=== PATIENT | female | born 1970 | race African-American/Black ===

== ENCOUNTER 2017-10-20 10:08 | Emergency (ER) | payer OTHER ==
[~2017-10-20] VITALS: Ht 160 cm; Wt 114.0 kg
[2017-10-20] MEDS ORDERED: KETOROLAC 30MG/ML VIAL IM ONE (18:45)
[2017-10-20 18:55] VITALS: BP 149/85
== END 2017-10-20 20:20 | disposition home or self-care (01) ==
LOC: ER 10:39
DX: K08.89 Other specified disorders of teeth and supporting structures (principal); I10 Essential (primary) hypertension; R51 Headache; F17.200 Nicotine dependence, unspecified, uncomplicated
CPT/HCPCS: 81025; 96372; 99283; J1885; Z7610

== ENCOUNTER 2018-02-18 12:19 | Inpatient (IN) | payer OTHER ==
[~2018-02-18] VITALS: Ht 160 cm; Wt 112.5 kg
[2018-02-18] MEDS ORDERED: ASPIRIN 81MG TABLET PO STA (13:05)
[2018-02-18] MEDS ORDERED: NITROGLYCERIN 0.4MG TABLET SL SL PRN (13:15)
[2018-02-18 14:46] LABS: BASOPHILS % 0.6 % (0.0-2.0); EOSINOPHILS % 2.5 % (0.0-5.0); HEMOGLOBIN. 13.7 g/dL (12.0-16.0); MEAN CORPUSCULAR HEMOGLOBIN 28.4 pg (28.0-32.0); MEAN PLATELET VOLUME 9.3 fl (7.4-10.4); MONOCYTES % 8.1 % (2.0-8.0); NEUTROPHILS % 64.8 % (40.0-76.0); PLATELET 274 x1000/uL (130-400); RED BLOOD CELL COUNT 4.82 mill/uL (4.2-5.4); RED CELL DISTRIBUTION WIDTH 12.9 % (11.6-14.6)
[2018-02-18 14:48] LABS: CHLORIDE 106 mEq/L (98-107)
[2018-02-18 14:51] LABS: PARTIAL THROMBOPLASTIN TIME 27.5 sec (23.4-31.0); PROTHROMBIN TIME 10.6 sec (9.4-11.6)
[2018-02-18 17:23] LABS: HCG SCREEN NEGATIVE
[2018-02-18] MEDS ORDERED: IPRATROPIUM/ALBUTEROL 0.5-3(2.5)MG/3ML NEB INH PRN (18:15)
[2018-02-18] MEDS ORDERED: ENOXAPARIN 40MG/0.4ML SYR SUBCUT SCH (18:15)
[2018-02-18] MEDS ORDERED: ONDANSETRON HCL 4MG/2ML VIAL IV PRN (18:15)
[2018-02-18] MEDS ORDERED: HYDROCODONE/ACETAMINOPHEN 5/325MG TABLET PO PRN (18:15)
[2018-02-18] MEDS ORDERED: CLONIDINE 0.1MG TABLET PO PRN (18:15)
[2018-02-18] MEDS ORDERED: ACETAMINOPHEN 325MG TABLET PO PRN (18:15)
[2018-02-18] MEDS ORDERED: MAGNESIUM/ALUMINUM HYDROXIDE/SIMETHICONE 30ML UDC PO PRN (18:15)
[2018-02-18] MEDS ORDERED: DOCUSATE SODIUM 100MG CAPSULE PO PRN (18:15)
[2018-02-18 18:44] LABS: CHLORIDE 106 mEq/L (98-107)
[2018-02-18] MEDS ORDERED: HYDR-4133 MT (22:16)
[2018-02-18] MEDS ORDERED: LISI2.5T47 MT (22:16)
[2018-02-18] MEDS ORDERED: ASPI-1159 MT (22:16)
[2018-02-18] MEDS ORDERED: FURO-152 MT (22:16)
[2018-02-18] MEDS ORDERED: ONDANSETRON 4MG ODT PO PRN (22:45)
[2018-02-19] VITALS (8 sets, daily range): BP systolic 123–177; BP diastolic 53–84
[2018-02-19 00:18] LABS: CREATINE KINASE 58 IU/L (26-192); CREATINE KINASE MB FRACTION 0.7 ng/mL (0.5-3.6)
[2018-02-19 06:47] LABS: BASOPHILS % 0.4 % (0.0-2.0); EOSINOPHILS % 2.1 % (0.0-5.0); HEMOGLOBIN. 13.2 g/dL (12.0-16.0); LYMPHOCYTES % 24.6 % (20.0-50.0); MEAN CORPUSCULAR HEMOGLOBIN 28.5 pg (28.0-32.0); MEAN CORPUSCULAR VOLUME 83.8 fL (81.0-99.0); MONOCYTES % 8.1 % (2.0-8.0); NEUTROPHILS % 64.8 % (40.0-76.0); PLATELET 246 x1000/uL (130-400); RED BLOOD CELL COUNT 4.65 mill/uL (4.2-5.4); RED CELL DISTRIBUTION WIDTH 12.9 % (11.6-14.6)
[2018-02-19 06:55] LABS: CREATINE KINASE 56 IU/L (26-192); LDL CHOLESTEROL 43 mg/dL (5-100)
[2018-02-19 06:57] LABS: HDL CHOLESTEROL 42 mg/dL (40-59)
[2018-02-19 06:59] LABS: CREATINE KINASE MB FRACTION 0.7 ng/mL (0.5-3.6)
[2018-02-19] MEDS: ENOXAPARIN 40MG/0.4ML SYR SUBCUT SCH ×2 (08:53→20:37)
[2018-02-19] MEDS ORDERED: ASPIRIN 81MG EC TABLET PO SCH (09:00)
[2018-02-19 11:32] LABS: *AMPHETAMINES SCREEN URINE NEGATIVE (NEGATIVE); *BARBITURATES SCREEN URINE NEGATIVE (NEGATIVE); *BENZODIAZEPINES SCREEN URINE NEGATIVE (NEGATIVE); *COCAINE SCREEN URINE NEGATIVE (NEGATIVE)
[2018-02-19 11:34] LABS: METHADONE URINE SCREEN NEGATIVE (NEGATIVE); PHENCYCLIDINE URINE SCREEN NEGATIVE (NEGATIVE)
[2018-02-19 11:43] LABS: OPIATES URINE SCREEN NEGATIVE (NEGATIVE)
[2018-02-19 11:44] LABS: CANNABINOID URINE SCREEN NEGATIVE (NEGATIVE)
[2018-02-19] MEDS: METOPROLOL TARTRATE 50MG TABLET PO SCH (20:37)
[2018-02-20] VITALS (7 sets, daily range): BP systolic 135–154; BP diastolic 64–81
[2018-02-20 06:01] LABS: BASOPHILS % 0.5 % (0.0-2.0); EOSINOPHILS % 2.8 % (0.0-5.0); HEMATOCRIT. 39.1 % (36.0-48.0); HEMOGLOBIN. 13.1 g/dL (12.0-16.0); LYMPHOCYTES % 30.3 % (20.0-50.0); MEAN CORPUSCULAR VOLUME 83.4 fL (81.0-99.0); MEAN PLATELET VOLUME 9.9 fl (7.4-10.4); MONOCYTES % 8.2 % (2.0-8.0); NEUTROPHILS % 58.2 % (40.0-76.0); PLATELET 247 x1000/uL (130-400); RED BLOOD CELL COUNT 4.68 mill/uL (4.2-5.4); RED CELL DISTRIBUTION WIDTH 12.9 % (11.6-14.6)
[2018-02-20 06:46] LABS: CHLORIDE 105 mEq/L (98-107)
[2018-02-20 06:53] LABS: PHOSPHORUS 3.5 mg/dL (2.5-4.9)
[2018-02-20] MEDS: ENOXAPARIN 40MG/0.4ML SYR SUBCUT SCH (08:37)
[2018-02-20] MEDS: METOPROLOL TARTRATE 50MG TABLET PO SCH (08:38)
[2018-02-20] MEDS ORDERED: FUROSEMIDE 20MG TABLET PO SCH (09:00)
[2018-02-20] MEDS ORDERED: METO-539 PO (13:59)
[2018-02-20] MEDS ORDERED: ENOXAPARIN 30MG/0.3ML SYR SUBCUT SCH (21:00)
== END 2018-02-20 18:10 | disposition home or self-care (01) | DRG 203 ==
LOC: ER 15:00 → 7WST 17:00 → EDBEDREQ 17:06 → EDBEDREQTM 17:06 → ENRESERV 18:57
PROVIDERS: ADMIT Internal Medicine; ATTEND Internal Medicine
DX: R07.89 Other chest pain (principal); I11.0 Hypertensive heart disease with heart failure; K75.9 Inflammatory liver disease, unspecified; I50.9 Heart failure, unspecified; F17.210 Nicotine dependence, cigarettes, uncomplicated; E78.5 Hyperlipidemia, unspecified; R00.2 Palpitations; Z72.89 Other problems related to lifestyle; Z86.73 Personal history of transient ischemic attack (TIA), and cerebral infarction without residual deficits
CPT/HCPCS: 36415; 71045; 80048; 80053; 80061; 80305; 82550; 82553; 83735; 83880; 84100; 84443; 84484; 84703; 85025; 85610; 85730; 93005; 93970; 99285; J1650

== ENCOUNTER 2019-11-16 11:36 | Emergency (ER) | payer OTHER, MEDICAID ==
[~2019-11-16] VITALS: Ht 170.2 cm; Wt 83.0 kg
[~2019-11-16 11:36] MED LIST: ASPI-1497 MT; FURO-152 MT; METO-539 PO
[2019-11-16] MEDS ORDERED: SODIUM CHLORIDE 0.9% 1,000 ML IV ONE (12:02)
[2019-11-16 12:34] LABS: BASOPHILS % 0.6 % (0.0-2.0); EOSINOPHILS % 0.7 % (0.0-5.0); HEMATOCRIT. 42.9 % (36.0-48.0); HEMOGLOBIN. 14.6 g/dL (12.0-16.0); MEAN CORPUSCULAR HEMOGLOBIN 29.3 pg (28.0-32.0); MEAN CORPUSCULAR VOLUME 86.3 fL (81.0-99.0); MEAN PLATELET VOLUME 9.8 fl (7.4-10.4); MONOCYTES % 7.9 % (2.0-8.0); NEUTROPHILS % 77.8 % (40.0-76.0); PLATELET 239 x1000/uL (130-400); RED BLOOD CELL COUNT 4.98 mill/uL (4.2-5.4); RED CELL DISTRIBUTION WIDTH 13.3 % (11.6-14.6)
[2019-11-16 13:04] LABS: CHLORIDE 108 mEq/L (98-107)
[2019-11-16] MEDS ORDERED: POTASSIUM CHLORIDE 20MEQ TABLET SR PO ONE (13:15)
[2019-11-16 14:05] VITALS: BP 133/63
[2019-11-16 14:06] LABS: CLARITY URINE CLOUDY (CLEAR); COLOR URINE DARK YELLOW (YELLOW); KETONES URINE TRACE (NEGATIVE); LEUKOCYTE ESTERASE URINE NEGATIVE (NEGATIVE); NITRITE URINE NEGATIVE (NEGATIVE); OCCULT BLOOD URINE NEGATIVE (NEGATIVE); PROTEIN URINE TRACE (NEGATIVE); SPECIFIC GRAVITY URINE 1.027 (1.005-1.030); UROBILINOGEN URINE 0.2 E.U./dL (0.2-1.0)
== END 2019-11-16 15:00 | disposition home or self-care (01) ==
LOC: ER 11:36
DX: R55 Syncope and collapse (principal); R42 Dizziness and giddiness; E87.6 Hypokalemia; N30.00 Acute cystitis without hematuria; I10 Essential (primary) hypertension
CPT/HCPCS: 36415; 80053; 81003; 85025; 93005; 96360; 99284; J7030